=== PATIENT | female | born 1950 | race Caucasian/White ===

== ENCOUNTER → 2017-02-05 | Outpatient (CLI) | payer MEDICARE, BC ==
[~2017-02-05] MED LIST: CEFTIN500 MG PO; NO HOME MEDICATIONS; NORCO 325 MG-51 TAB PO; SIMVASTATIN40 MG PO
== END ==
LOC: COL.RAD 13:05
DX: R10.11 Right upper quadrant pain (principal)

== ENCOUNTER 2017-05-02 06:14 | Day surgery (SDC) | payer MEDICARE, BC ==
[~2017-05-02] VITALS: Ht 162.6 cm; Wt 73.7 kg
[2017-05-02 06:35] VITALS: BP 145/87; PULSE 70; TEMP 98
[2017-05-02 07:55] VITALS: BP 126/80; PULSE 84; TEMP 97.1
[2017-05-02 08:10] VITALS: BP 123/69; PULSE 64
[2017-05-02 08:25] VITALS: BP 115/93; PULSE 68
== END 2017-05-02 08:53 | disposition home or self-care (01) ==
LOC: SDCO 06:14
DX: R10.9 Unspecified abdominal pain (principal); Z86.010 Personal history of colon polyps
CPT/HCPCS: J2250; J2405; J3010; J7030

== ENCOUNTER → 2018-12-23 | Outpatient (CLI) | payer MEDICARE, BC | LOC: MC.RAD 13:54 | DX: N63.20 Unspecified lump in the left breast, unspecified quadrant (principal) | CPT/HCPCS: G0279 ==

== ENCOUNTER → 2018-12-29 | Outpatient (CLI) | payer MEDICARE, BC | LOC: MC.RAD 07:51 | DX: N63.20 Unspecified lump in the left breast, unspecified quadrant (principal); Z98.82 Breast implant status ==

== ENCOUNTER → 2019-01-26 | Outpatient (CLI) | payer MEDICARE, BC ==
[~2019-01-26] MED LIST changes: +XALATAN EYE DROPS OD
== END ==
LOC: COL.RAD 13:15
DX: C50.212 Malignant neoplasm of upper-inner quadrant of left female breast (principal); Z98.890 Other specified postprocedural states
CPT/HCPCS: J0690; J1100; J2250; J2405; J2704; J2795; J3010; J7120

== ENCOUNTER 2019-01-27 06:27 | Day surgery (SDC) | payer MEDICARE, BC ==
[~2019-01-27] VITALS: Ht 162.6 cm; Wt 72.5 kg
[~2019-01-27 06:27] MED LIST changes: -XALATAN EYE DROPS OD
--- NOTE | 2019-01-27 07:20 | NUR ---
Patient brought up from Radiology to [facility]. Images per MD orders completed. WIll proceed with admission process at this time.
[2019-01-27 07:53] VITALS: BP 151/87; PULSE 69; TEMP 98
[2019-01-27] MEDS ORDERED: XALATAN EYE DROPS OD (08:02)
[2019-01-27] MEDS ORDERED: NORCO 325 MG-51 TAB PO (13:58)
[2019-01-27 14:35] VITALS: BP 142/80; PULSE 82; TEMP 97.4
--- NOTE | 2019-01-27 14:35 | NUR ---
Patient brought back to bay 2 from PACU. Alert and oriented. Vital signs stable. States she will just take a water but would like to rest more. Bandage to left chest and axillary in tact, no drainage noted. Patients daughter at bedside. Call walls within reach, will continue to monitor.
[2019-01-27 14:50] VITALS: BP 141/78; PULSE 74
--- NOTE | 2019-01-27 14:50 | NUR ---
Patient states she is feeling much better and would like a apple sauce. Tolerating drink well. Will continue to monitor.
[2019-01-27 15:05] VITALS: BP 150/92; PULSE 72
--- NOTE | 2019-01-27 15:05 | NUR ---
Patient ambulated to bathroom without difficulty. Sucessful void. Will continue to monitor.
--- NOTE | 2019-01-27 15:17 | NUR ---
Patient ambulated to bathroom. Void obtained. Steady.
[2019-01-27 15:20] VITALS: BP 153/89; PULSE 78
--- NOTE | 2019-01-27 15:30 | NUR ---
IV removed per MD orders. Discharge instructions reviewed with patient and daughter. All questions answered. Patient to get dressed at this time.
--- NOTE | 2019-01-27 15:40 | NUR ---
Patient brought down to lobby via wheelchair. To be driven home by daughter Mathew.
[2019-01-27 16:14] VITALS: BP 146/82; PULSE 78; TEMP 97.9
== END 2019-01-27 15:40 | disposition home or self-care (01) ==
LOC: SDCO 06:27
DX: C50.212 Malignant neoplasm of upper-inner quadrant of left female breast (principal); Z17.0 Estrogen receptor positive status [ER+]; Z86.718 Personal history of other venous thrombosis and embolism; M16.0 Bilateral primary osteoarthritis of hip; Z82.49 Family history of ischemic heart disease and other diseases of the circulatory system; Z80.3 Family history of malignant neoplasm of breast; Z80.0 Family history of malignant neoplasm of digestive organs
CPT/HCPCS: A9541; J2405; J7120

== ENCOUNTER → 2019-12-29 | Outpatient (CLI) | payer MEDICARE, BC ==
[~2019-12-29] MED LIST changes: +XALATAN EYE DROPS OD
== END ==
LOC: MC.RAD 14:15
DX: C50.212 Malignant neoplasm of upper-inner quadrant of left female breast (principal); Z98.890 Other specified postprocedural states
CPT/HCPCS: G0279

== ENCOUNTER → 2022-01-14 | Outpatient (CLI) | payer MEDICARE, BC | LOC: MC.RAD 08:31 | DX: Z85.3 Personal history of malignant neoplasm of breast (principal) ==

== ENCOUNTER → 2024-01-22 | Outpatient (CLI) | payer MEDICARE, BC | LOC: MC.RAD 08:00 | DX: Z12.31 Encounter for screening mammogram for malignant neoplasm of breast (principal) ==